=== PATIENT | male | born 1990 | race Two or more races ===

== ENCOUNTER 2025-02-07 14:11 | Emergency (ER) | payer MEDICAID ==
[~2025-02-07] VITALS: Ht 165.1 cm; Wt 56.8 kg
[2025-02-07 14:19] VITALS: TEMP 98.3
[2025-02-07 14:44] LABS: PLATELET COUNT (AUTO) 312 K/uL (150-450); RED BLOOD CELL COUNT(AUTO) 4.54 MIL/uL (4.5-6.0); RED CELL DISTRIBUTION WIDTH 13.1 % (11.5-15.0); WHITE BLOOD COUNT (AUTO) 7.3 K/uL (4.3-11.0)
[2025-02-07] MEDS ORDERED: ACETAMINOPHEN ES 500 MG TABLET ONE (14:45)
[2025-02-07] MEDS ORDERED: TDAP [DIPH/PERTUSSIS/TET] 0.5 ML VIAL IM ONE (14:45)
[2025-02-07 14:49] LABS: CALCIUM, SERUM 8.3 mg/dL (8.5-10.1); CREATININE 0.9 mg/dL (0.6-1.3); SODIUM SERUM 141.0 mmol/L (136-145); UREA NITROGEN, BLOOD 17.0 mg/dL (7-18)
[2025-02-07] MEDS: IV NS 0.9% 1,000 ML BAG IV ONE (14:50)
[2025-02-07 14:51] LABS: ALCOHOL, BLOOD 74.0 mg/dL (0-10)
[2025-02-07] MEDS: TDAP [DIPH/PERTUSSIS/TET] 0.5 ML VIAL IM ONE (14:51)
[2025-02-07] MEDS: ACETAMINOPHEN ES 500 MG TABLET PO ONE (14:52)
[2025-02-07] MEDS ORDERED: CEPH-570 PO (16:11)
[2025-02-07 17:12] VITALS: BP 120/85; O2SAT 100
== END 2025-02-07 16:58 | disposition home or self-care (01) ==
LOC: ER 14:21 → EDBD 14:21 → ER 16:58
DX: S01.01XA Laceration without foreign body of scalp, initial encounter (principal); R51.9 Headache, unspecified; Z23 Encounter for immunization; Y04.8XXA Assault by other bodily force, initial encounter; Y93.89 Activity, other specified; Y92.89 Other specified places as the place of occurrence of the external cause; Y99.8 Other external cause status
CPT/HCPCS: 12002; 36415; 70450; 70486; 80048; 80320; 85025; 96360; 99284; A6403; 90715; G0480